=== PATIENT | female | born 1995 | race Two or more races ===

== ENCOUNTER 2021-06-27 07:51 | Emergency (ER) | payer OTHER ==
[~2021-06-27] VITALS: Ht 165.1 cm; Wt 56.7 kg
[2021-06-27] MEDS ORDERED: PROTONIX40 M1 (07:59)
== END 2021-06-27 15:27 | disposition home or self-care (01) ==
LOC: ER 07:51
DX: R10.13 Epigastric pain (principal)

== ENCOUNTER → 2021-07-03 | Outpatient (CLI) | payer OTHER ==
[~2021-07-03] MED LIST: PROTONIX40 M1
== END | disposition home or self-care (01) ==
LOC: TOM 10:03
PROVIDERS: ATTEND Surgery
DX: R10.11 Right upper quadrant pain (principal)

== ENCOUNTER 2021-07-15 08:10 | Outpatient (CLI) | payer OTHER | END 2021-07-15 08:11 | disposition home or self-care (01) | LOC: NUCLEAR 08:10 | PROVIDERS: ATTEND Surgery | DX: R10.13 Epigastric pain (principal) | CPT/HCPCS: 78227; A9510; J2805 ==